=== PATIENT | male | born 1940 | race African-American/Black ===

== ENCOUNTER 2018-05-24 15:50 | Inpatient (IN) | payer BC ==
[~2018-05-24] VITALS: Ht 185.4 cm; Wt 76.3 kg
[2018-05-24 15:20] VITALS: BP 107/50
[~2018-05-24 15:50] MED LIST: MULT-1116 MT
[2018-05-24 16:30] VITALS: BP 106/60
[2018-05-24] MEDS ORDERED: TRAMADOL 50MG TABLET PO PRN (16:30)
[2018-05-24] MEDS ORDERED: GUAIFENESIN 200MG/10ML SUGAR FREE UDC PO PRN (16:30)
[2018-05-24] MEDS ORDERED: CLONIDINE 0.1MG TABLET PO PRN (16:30)
[2018-05-24] MEDS ORDERED: DOCUSATE SODIUM 100MG CAPSULE PO PRN (16:30)
[2018-05-24] MEDS ORDERED: NA PHOS,M-B/NA PHOS,DI-BA ENEMA 118ML PR PRN (16:30)
[2018-05-24] MEDS ORDERED: LORAZEPAM 0.5MG TABLET PO PRN (16:30)
[2018-05-24] MEDS ORDERED: MAGNESIUM/ALUMINUM HYDROXIDE/SIMETHICONE 30ML UDC PO PRN (16:30)
[2018-05-24] MEDS ORDERED: DIPHENHYDRAMINE 50MG/ML VIAL IV PRN (16:30)
[2018-05-24] MEDS ORDERED: IPRATROPIUM/ALBUTEROL 0.5-3(2.5)MG/3ML NEB HHN PRN (16:30)
[2018-05-24] MEDS ORDERED: MORPHINE SULFATE 4 MG/ML CPJ (NOT FOR IM USE) IV PRN (16:30)
[2018-05-24] MEDS ORDERED: ONDANSETRON HCL 4MG/2ML VIAL IV PRN (16:30)
[2018-05-24] MEDS ORDERED: NITROGLYCERIN 0.4MG TABLET SL SL PRN (16:30)
[2018-05-24] MEDS ORDERED: ONDANSETRON 4MG ODT PO PRN (17:30)
[2018-05-24] MEDS: HYDROCODONE/ACETAMINOPHEN 10/325MG TABLET PO PRN (18:11)
[2018-05-24] MEDS: FERROUS SULFATE 300MG/5ML UDC PO SCH (18:11)
[2018-05-24 20:00] VITALS: BP 104/60
[2018-05-24] MEDS: FAMOTIDINE 20MG TABLET PO SCH (20:59)
[2018-05-24] MEDS: ASCORBIC ACID 500 MG TABLET PO SCH (20:59)
[2018-05-24] MEDS ORDERED: ZOLPIDEM TARTRATE 5MG TABLET PO PRN (21:00)
[2018-05-24] MEDS ORDERED: FAMOTIDINE 20MG/2ML VIAL IV SCH (21:00)
[2018-05-25 06:50] LABS: BASOPHILS % 0.7 % (0.0-2.0); EOSINOPHILS % 1.6 % (0.0-5.0); HEMOGLOBIN. 7.1 g/dL (14.0-18.0); LYMPHOCYTES % 25.5 % (20.0-50.0); MEAN CORPUSCULAR HEMOGLOBIN 34.2 pg (28.0-32.0); MEAN CORPUSCULAR VOLUME 98.7 fL (80.0-94.0); MEAN PLATELET VOLUME 7.6 fl (7.4-10.4); MONOCYTES % 12.3 % (2.0-8.0); NEUTROPHILS % 59.9 % (40.0-76.0); PLATELET 198 x1000/uL (130-400); RED BLOOD CELL COUNT 2.07 mill/uL (4.7-6.1); RED CELL DISTRIBUTION WIDTH 13.2 % (11.6-14.6)
[2018-05-25 07:02] LABS: HEMATOCRIT. 20.4 % (42.0-52.0)
[2018-05-25 07:50] VITALS: BP 109/62
[2018-05-25 07:50] LABS: CHLORIDE 102 mEq/L (98-107)
[2018-05-25] MEDS: HYDROCODONE/ACETAMINOPHEN 10/325MG TABLET PO PRN (07:51)
[2018-05-25] MEDS: ASCORBIC ACID 500 MG TABLET PO SCH ×2 (08:33→21:49)
[2018-05-25] MEDS: ZINC SULFATE 220 MG ( 50 ) CAPSULE PO SCH (08:34)
[2018-05-25] MEDS: FAMOTIDINE 20MG TABLET PO SCH ×2 (08:34→21:49)
[2018-05-25] MEDS: FERROUS SULFATE 300MG/5ML UDC PO SCH ×3 (08:34→17:32)
[2018-05-25] MEDS ORDERED: FAMOTIDINE 20MG TABLET PO SCH (09:00)
[2018-05-25] MEDS ORDERED: ENOXAPARIN 40MG/0.4ML SYR SUBCUT SCH (09:00)
[2018-05-25 11:05] LABS: CLARITY URINE CLEAR (CLEAR); COLOR URINE YELLOW (YELLOW); KETONES URINE TRACE (NEGATIVE); LEUKOCYTE ESTERASE URINE NEGATIVE (NEGATIVE); NITRITE URINE NEGATIVE (NEGATIVE); OCCULT BLOOD URINE NEGATIVE (NEGATIVE); PH URINE 5.5 (4.5-8.0); PROTEIN URINE NEGATIVE (NEGATIVE); SPECIFIC GRAVITY URINE 1.016 (1.005-1.030); UROBILINOGEN URINE 0.2 E.U./dL (0.2-1.0)
[2018-05-25 15:04] VITALS: BP 102/52
[2018-05-25 15:20] VITALS: BP 120/68
[2018-05-25 16:17] VITALS: BP 100/51
[2018-05-25 17:43] VITALS: BP 112/61
[2018-05-25 20:00] VITALS: BP 129/67
[2018-05-25] MEDS: ENOXAPARIN 80MG/0.8ML SYR SUBCUT SCH (21:49)
[2018-05-26] MEDS: HYDROCODONE/ACETAMINOPHEN 10/325MG TABLET PO PRN ×3 (03:54→16:35)
[2018-05-26 06:59] LABS: BASOPHILS % 0.4 % (0.0-2.0); EOSINOPHILS % 1.7 % (0.0-5.0); HEMATOCRIT. 24.6 % (42.0-52.0); HEMOGLOBIN. 8.5 g/dL (14.0-18.0); LYMPHOCYTES % 34.7 % (20.0-50.0); MEAN CORPUSCULAR HEMOGLOBIN 33.9 pg (28.0-32.0); MEAN CORPUSCULAR VOLUME 98.3 fL (80.0-94.0); MEAN PLATELET VOLUME 7.5 fl (7.4-10.4); MONOCYTES % 11.9 % (2.0-8.0); NEUTROPHILS % 51.3 % (40.0-76.0); PLATELET 227 x1000/uL (130-400); RED CELL DISTRIBUTION WIDTH 13.7 % (11.6-14.6)
[2018-05-26 07:00] VITALS: BP 124/71
[2018-05-26 07:31] LABS: CHLORIDE 101 mEq/L (98-107)
[2018-05-26 07:36] LABS: LDL CHOLESTEROL 108 mg/dL (5-100); PHOSPHORUS 3.4 mg/dL (2.5-4.9)
[2018-05-26 07:37] LABS: FERRITIN 844 ng/mL (22-322)
[2018-05-26 07:38] LABS: PROSTRATE SPECIFIC AG TOTAL 0.04 ng/mL (0.0-4.0)
[2018-05-26 07:39] LABS: HDL CHOLESTEROL 42 mg/dL (40-59)
[2018-05-26 07:41] LABS: TOTAL IRON BINDING CAPACITY 210 ug/dL (250-450)
[2018-05-26 07:52] LABS: VITAMIN B12 SERUM 428 pg/mL (211-911)
[2018-05-26 08:03] LABS: FOLIC ACID (FOLATE) SERUM > 20.00 ng/mL (>5.38)
[2018-05-26] MEDS: ZINC SULFATE 220 MG ( 50 ) CAPSULE PO SCH (08:17)
[2018-05-26] MEDS: FERROUS SULFATE 300MG/5ML UDC PO SCH ×3 (08:17→16:26)
[2018-05-26] MEDS: ENOXAPARIN 80MG/0.8ML SYR SUBCUT SCH ×2 (08:18→21:49)
[2018-05-26] MEDS: FAMOTIDINE 20MG TABLET PO SCH ×2 (08:18→21:49)
[2018-05-26 10:30] VITALS: BP 106/53
[2018-05-26] MEDS: ASCORBIC ACID 500 MG TABLET PO SCH ×2 (13:50→21:49)
[2018-05-26 16:25] VITALS: BP 126/75
[2018-05-26 20:00] VITALS: BP 115/69
[2018-05-27] MEDS: HYDROCODONE/ACETAMINOPHEN 10/325MG TABLET PO PRN ×2 (00:22→22:13)
[2018-05-27 06:38] LABS: BASOPHILS % 0.5 % (0.0-2.0); EOSINOPHILS % 2.8 % (0.0-5.0); HEMATOCRIT. 25.1 % (42.0-52.0); HEMOGLOBIN. 8.5 g/dL (14.0-18.0); LYMPHOCYTES % 30.7 % (20.0-50.0); MEAN CORPUSCULAR HEMOGLOBIN 33.6 pg (28.0-32.0); MEAN CORPUSCULAR VOLUME 99.2 fL (80.0-94.0); MEAN PLATELET VOLUME 7.8 fl (7.4-10.4); MONOCYTES % 11.4 % (2.0-8.0); NEUTROPHILS % 54.6 % (40.0-76.0); PLATELET 264 x1000/uL (130-400); RED BLOOD CELL COUNT 2.53 mill/uL (4.7-6.1); RED CELL DISTRIBUTION WIDTH 14.1 % (11.6-14.6)
[2018-05-27 07:00] VITALS: BP_SYST 123; BP_SYST 135; BP_DIAS 67; BP_DIAS 79
[2018-05-27] MEDS: FERROUS SULFATE 300MG/5ML UDC PO SCH ×3 (08:46→16:08)
[2018-05-27] MEDS: ASCORBIC ACID 500 MG TABLET PO SCH ×2 (08:46→22:12)
[2018-05-27] MEDS: ZINC SULFATE 220 MG ( 50 ) CAPSULE PO SCH (08:46)
[2018-05-27] MEDS: FAMOTIDINE 20MG TABLET PO SCH ×2 (08:46→22:12)
[2018-05-27] MEDS: ENOXAPARIN 80MG/0.8ML SYR SUBCUT SCH ×2 (08:47→22:13)
[2018-05-27 20:00] VITALS: BP 141/71
[2018-05-28 07:13] LABS: BASOPHILS % 0.7 % (0.0-2.0); EOSINOPHILS % 1.6 % (0.0-5.0); HEMATOCRIT. 25.9 % (42.0-52.0); HEMOGLOBIN. 8.7 g/dL (14.0-18.0); LYMPHOCYTES % 27.1 % (20.0-50.0); MEAN CORPUSCULAR HEMOGLOBIN 33.4 pg (28.0-32.0); MEAN CORPUSCULAR VOLUME 98.8 fL (80.0-94.0); MONOCYTES % 10.4 % (2.0-8.0); NEUTROPHILS % 60.2 % (40.0-76.0); PLATELET 300 x1000/uL (130-400); RED BLOOD CELL COUNT 2.62 mill/uL (4.7-6.1)
[2018-05-28 07:50] VITALS: BP 119/69
[2018-05-28] MEDS: ENOXAPARIN 80MG/0.8ML SYR SUBCUT SCH ×2 (08:25→20:39)
[2018-05-28] MEDS: FERROUS SULFATE 300MG/5ML UDC PO SCH ×3 (08:25→17:04)
[2018-05-28] MEDS: ASCORBIC ACID 500 MG TABLET PO SCH ×2 (08:25→20:38)
[2018-05-28] MEDS: FAMOTIDINE 20MG TABLET PO SCH ×2 (08:25→20:38)
[2018-05-28] MEDS: ZINC SULFATE 220 MG ( 50 ) CAPSULE PO SCH (08:25)
[2018-05-28] MEDS: HYDROCODONE/ACETAMINOPHEN 10/325MG TABLET PO PRN ×2 (11:19→20:39)
[2018-05-28] MEDS: CYANOCOBALAMIN 1000MCG/ML VIAL IM SCH (17:04)
[2018-05-28 20:00] VITALS: BP 114/67
[2018-05-29] MEDS: HYDROCODONE/ACETAMINOPHEN 10/325MG TABLET PO PRN (07:05)
[2018-05-29 07:20] LABS: BASOPHILS % 0.7 % (0.0-2.0); EOSINOPHILS % 1.5 % (0.0-5.0); HEMATOCRIT. 25.3 % (42.0-52.0); HEMOGLOBIN. 8.9 g/dL (14.0-18.0); LYMPHOCYTES % 27.9 % (20.0-50.0); MEAN CORPUSCULAR HEMOGLOBIN 34.7 pg (28.0-32.0); MONOCYTES % 8.9 % (2.0-8.0); PLATELET 296 x1000/uL (130-400); RED BLOOD CELL COUNT 2.55 mill/uL (4.7-6.1); RED CELL DISTRIBUTION WIDTH 14.1 % (11.6-14.6)
[2018-05-29 07:51] VITALS: BP 118/76
[2018-05-29] MEDS: FERROUS SULFATE 300MG/5ML UDC PO SCH ×3 (09:21→17:11)
[2018-05-29] MEDS: ASCORBIC ACID 500 MG TABLET PO SCH ×2 (09:21→21:24)
[2018-05-29] MEDS: ZINC SULFATE 220 MG ( 50 ) CAPSULE PO SCH (09:21)
[2018-05-29] MEDS: FAMOTIDINE 20MG TABLET PO SCH ×2 (09:21→21:25)
[2018-05-29] MEDS: ENOXAPARIN 80MG/0.8ML SYR SUBCUT SCH ×2 (09:22→21:25)
[2018-05-29] MEDS: CYANOCOBALAMIN 1000MCG/ML VIAL IM SCH (09:22)
[2018-05-29] MEDS ORDERED: TRAMADOL 50MG TABLET PO PRN (10:30)
[2018-05-29] MEDS ORDERED: HYDROCODONE/ACETAMINOPHEN 10/325MG TABLET PO PRN (10:30)
[2018-05-29] MEDS ORDERED: MORPHINE SULFATE 4 MG/ML CPJ (NOT FOR IM USE) IV PRN (12:30)
[2018-05-29] MEDS ORDERED: LORAZEPAM 0.5MG TABLET PO PRN (12:30)
[2018-05-29] MEDS: LACTULOSE 20G/30ML UDC PO SCH ×2 (12:36→17:11)
[2018-05-29 20:00] VITALS: BP 107/64
[2018-05-29] MEDS ORDERED: ZOLPIDEM TARTRATE 5MG TABLET PO PRN (21:00)
[2018-05-29 22:00] VITALS: BP 116/68
[2018-05-30 06:00] VITALS: BP 111/69
[2018-05-30] MEDS: ACETAMINOPHEN 325MG TABLET PO PRN (06:25)
[2018-05-30] MEDS ORDERED: HYDROCODONE/ACETAMINOPHEN 10/325MG TABLET PO PRN (06:30)
[2018-05-30] MEDS ORDERED: TRAMADOL 50MG TABLET PO PRN (06:30)
[2018-05-30 07:16] LABS: EOSINOPHILS % 2.4 % (0.0-5.0); HEMATOCRIT. 26.5 % (42.0-52.0); MEAN CORPUSCULAR HEMOGLOBIN 33.8 pg (28.0-32.0); MEAN CORPUSCULAR VOLUME 99.8 fL (80.0-94.0); MEAN PLATELET VOLUME 8.1 fl (7.4-10.4); MONOCYTES % 10.1 % (2.0-8.0); NEUTROPHILS % 56.5 % (40.0-76.0); PLATELET 356 x1000/uL (130-400); RED BLOOD CELL COUNT 2.66 mill/uL (4.7-6.1); RED CELL DISTRIBUTION WIDTH 14.5 % (11.6-14.6)
[2018-05-30 07:40] VITALS: BP 116/66
[2018-05-30 07:57] LABS: CHLORIDE 102 mEq/L (98-107)
[2018-05-30] MEDS: ZINC SULFATE 220 MG ( 50 ) CAPSULE PO SCH (08:32)
[2018-05-30] MEDS: FERROUS SULFATE 300MG/5ML UDC PO SCH ×3 (08:32→17:01)
[2018-05-30] MEDS: ASCORBIC ACID 500 MG TABLET PO SCH ×2 (08:32→21:28)
[2018-05-30] MEDS: FAMOTIDINE 20MG TABLET PO SCH ×2 (08:32→21:28)
[2018-05-30] MEDS: CYANOCOBALAMIN 1000MCG/ML VIAL IM SCH (08:33)
[2018-05-30] MEDS: ENOXAPARIN 80MG/0.8ML SYR SUBCUT SCH ×2 (08:33→21:28)
[2018-05-30 20:00] VITALS: BP 115/69
[2018-05-31 07:30] VITALS: BP 115/66
[2018-05-31] MEDS: CYANOCOBALAMIN 1000MCG/ML VIAL IM SCH (09:51)
[2018-05-31] MEDS: FAMOTIDINE 20MG TABLET PO SCH ×2 (09:52→21:18)
[2018-05-31] MEDS: FERROUS SULFATE 300MG/5ML UDC PO SCH ×3 (09:52→18:09)
[2018-05-31] MEDS: ENOXAPARIN 80MG/0.8ML SYR SUBCUT SCH ×2 (09:52→21:19)
[2018-05-31] MEDS: ASCORBIC ACID 500 MG TABLET PO SCH ×2 (09:52→21:18)
[2018-05-31] MEDS: ZINC SULFATE 220 MG ( 50 ) CAPSULE PO SCH (09:52)
[2018-05-31 20:00] VITALS: BP 113/60
[2018-06-01 07:20] LABS: BASOPHILS % 0.6 % (0.0-2.0); EOSINOPHILS % 1.7 % (0.0-5.0); HEMATOCRIT. 30.4 % (42.0-52.0); HEMOGLOBIN. 10.3 g/dL (14.0-18.0); LYMPHOCYTES % 30.5 % (20.0-50.0); MEAN CORPUSCULAR HEMOGLOBIN 33.8 pg (28.0-32.0); MEAN CORPUSCULAR VOLUME 100.2 fL (80.0-94.0); MEAN PLATELET VOLUME 8.3 fl (7.4-10.4); NEUTROPHILS % 58.2 % (40.0-76.0); PLATELET 414 x1000/uL (130-400); RED BLOOD CELL COUNT 3.03 mill/uL (4.7-6.1); RED CELL DISTRIBUTION WIDTH 15.1 % (11.6-14.6)
[2018-06-01 08:00] VITALS: BP 118/67
[2018-06-01] MEDS: ASCORBIC ACID 500 MG TABLET PO SCH ×2 (08:06→21:15)
[2018-06-01] MEDS: FERROUS SULFATE 300MG/5ML UDC PO SCH ×3 (08:06→16:22)
[2018-06-01] MEDS: ENOXAPARIN 80MG/0.8ML SYR SUBCUT SCH (08:06)
[2018-06-01] MEDS: CYANOCOBALAMIN 1000MCG/ML VIAL IM SCH (08:06)
[2018-06-01] MEDS: FAMOTIDINE 20MG TABLET PO SCH ×2 (08:06→21:14)
[2018-06-01] MEDS: ZINC SULFATE 220 MG ( 50 ) CAPSULE PO SCH (08:06)
[2018-06-01 09:45] VITALS: BP 101/50
[2018-06-01 17:06] LABS: 25-HYDROXY VITAMIN D3 26 ng/mL (.)
[2018-06-01] MEDS: RIVAROXABAN 15 MG TABLET PO SCH (17:46)
[2018-06-01 20:00] VITALS: BP 101/51
[2018-06-02 06:20] LABS: BASOPHILS % 0.4 % (0.0-2.0); EOSINOPHILS % 1.5 % (0.0-5.0); LYMPHOCYTES % 27.3 % (20.0-50.0); MEAN CORPUSCULAR HEMOGLOBIN 34.4 pg (28.0-32.0); MEAN CORPUSCULAR VOLUME 100.1 fL (80.0-94.0); MEAN PLATELET VOLUME 7.8 fl (7.4-10.4); MONOCYTES % 9.5 % (2.0-8.0); NEUTROPHILS % 61.3 % (40.0-76.0); PLATELET 444 x1000/uL (130-400); RED BLOOD CELL COUNT 2.89 mill/uL (4.7-6.1); RED CELL DISTRIBUTION WIDTH 14.7 % (11.6-14.6)
[2018-06-02 08:00] VITALS: BP 143/67
[2018-06-02] MEDS: FAMOTIDINE 20MG TABLET PO SCH ×2 (08:42→20:33)
[2018-06-02] MEDS: FERROUS SULFATE 300MG/5ML UDC PO SCH ×3 (08:42→16:39)
[2018-06-02] MEDS: ZINC SULFATE 220 MG ( 50 ) CAPSULE PO SCH (08:42)
[2018-06-02] MEDS: RIVAROXABAN 15 MG TABLET PO SCH ×2 (08:42→16:39)
[2018-06-02] MEDS: ASCORBIC ACID 500 MG TABLET PO SCH ×2 (08:42→20:33)
[2018-06-02] MEDS ORDERED: ERGOCALCIFEROL 50000UNITS CAPSULE PO SCH (10:00)
[2018-06-02 20:00] VITALS: BP 118/65
[2018-06-03 06:00] LABS: BASOPHILS % 0.4 % (0.0-2.0); EOSINOPHILS % 1.9 % (0.0-5.0); HEMATOCRIT. 32.3 % (42.0-52.0); LYMPHOCYTES % 32.1 % (20.0-50.0); MEAN CORPUSCULAR HEMOGLOBIN 34.1 pg (28.0-32.0); MEAN CORPUSCULAR VOLUME 100.1 fL (80.0-94.0); MONOCYTES % 8.3 % (2.0-8.0); NEUTROPHILS % 57.3 % (40.0-76.0); PLATELET 503 x1000/uL (130-400); RED BLOOD CELL COUNT 3.23 mill/uL (4.7-6.1); RED CELL DISTRIBUTION WIDTH 15.1 % (11.6-14.6)
[2018-06-03 08:00] VITALS: BP 106/62
[2018-06-03] MEDS: ZINC SULFATE 220 MG ( 50 ) CAPSULE PO SCH (09:29)
[2018-06-03] MEDS: FERROUS SULFATE 300MG/5ML UDC PO SCH ×3 (09:29→17:08)
[2018-06-03] MEDS: FAMOTIDINE 20MG TABLET PO SCH ×2 (09:30→21:01)
[2018-06-03] MEDS: RIVAROXABAN 15 MG TABLET PO SCH ×2 (09:30→17:08)
[2018-06-03] MEDS: ASCORBIC ACID 500 MG TABLET PO SCH ×2 (09:30→21:01)
[2018-06-03 20:00] VITALS: BP 96/56
[2018-06-03 23:54] VITALS: BP 103/64
[2018-06-04] MEDS: ACETAMINOPHEN 325MG TABLET PO PRN (06:36)
[2018-06-04 07:00] LABS: BASOPHILS % 0.6 % (0.0-2.0); EOSINOPHILS % 1.8 % (0.0-5.0); HEMATOCRIT. 31.8 % (42.0-52.0); HEMOGLOBIN. 10.9 g/dL (14.0-18.0); LYMPHOCYTES % 29.1 % (20.0-50.0); MEAN CORPUSCULAR HEMOGLOBIN 34.1 pg (28.0-32.0); MEAN CORPUSCULAR VOLUME 99.5 fL (80.0-94.0); MEAN PLATELET VOLUME 7.7 fl (7.4-10.4); NEUTROPHILS % 59.5 % (40.0-76.0); PLATELET 572 x1000/uL (130-400); RED BLOOD CELL COUNT 3.19 mill/uL (4.7-6.1); RED CELL DISTRIBUTION WIDTH 15.4 % (11.6-14.6)
[2018-06-04 08:00] VITALS: BP 125/68
[2018-06-04] MEDS: ZINC SULFATE 220 MG ( 50 ) CAPSULE PO SCH (09:25)
[2018-06-04] MEDS: ASCORBIC ACID 500 MG TABLET PO SCH ×2 (09:25→21:50)
[2018-06-04] MEDS: FAMOTIDINE 20MG TABLET PO SCH ×2 (09:25→21:51)
[2018-06-04] MEDS: RIVAROXABAN 15 MG TABLET PO SCH ×2 (09:25→16:13)
[2018-06-04] MEDS: FERROUS SULFATE 300MG/5ML UDC PO SCH ×3 (09:25→16:13)
[2018-06-04] MEDS ORDERED: HYDROCODONE/ACETAMINOPHEN 10/325MG TABLET PO PRN (10:30)
[2018-06-04 20:00] VITALS: BP 109/63
[2018-06-05 06:57] LABS: BASOPHILS % 0.7 % (0.0-2.0); EOSINOPHILS % 2.1 % (0.0-5.0); HEMATOCRIT. 31.9 % (42.0-52.0); HEMOGLOBIN. 10.9 g/dL (14.0-18.0); LYMPHOCYTES % 34.9 % (20.0-50.0); MEAN CORPUSCULAR HEMOGLOBIN 34.3 pg (28.0-32.0); MEAN CORPUSCULAR VOLUME 100.4 fL (80.0-94.0); MEAN PLATELET VOLUME 7.3 fl (7.4-10.4); MONOCYTES % 11.3 % (2.0-8.0); PLATELET 581 x1000/uL (130-400); RED BLOOD CELL COUNT 3.18 mill/uL (4.7-6.1); RED CELL DISTRIBUTION WIDTH 15.2 % (11.6-14.6)
[2018-06-05 07:00] VITALS: BP 110/64
[2018-06-05] MEDS: FERROUS SULFATE 300MG/5ML UDC PO SCH ×3 (08:54→16:16)
[2018-06-05] MEDS: RIVAROXABAN 15 MG TABLET PO SCH ×2 (08:54→16:16)
[2018-06-05] MEDS: ZINC SULFATE 220 MG ( 50 ) CAPSULE PO SCH (08:54)
[2018-06-05] MEDS: ASCORBIC ACID 500 MG TABLET PO SCH (08:54)
[2018-06-05] MEDS: FAMOTIDINE 20MG TABLET PO SCH (08:54)
[2018-06-05 11:59] VITALS: BP 112/69
[2018-06-05] MEDS: ACETAMINOPHEN 325MG TABLET PO PRN (13:18)
[2018-06-05 14:00] VITALS: BP 112/69
== END 2018-06-05 19:35 | disposition home health service (06) | DRG 535 ==
LOC: EDBD 15:50
PROVIDERS: ADMIT Physical Medicine & Rehabilitation Spinal Cord Injury Medicine; ATTEND Internal Medicine
DX: S72.141A Displaced intertrochanteric fracture of right femur, initial encounter for closed fracture (principal); E43 Unspecified severe protein-calorie malnutrition; D62 Acute posthemorrhagic anemia; I82.411 Acute embolism and thrombosis of right femoral vein; R50.9 Fever, unspecified; R53.81 Other malaise; R26.9 Unspecified abnormalities of gait and mobility; R73.9 Hyperglycemia, unspecified; E78.00 Pure hypercholesterolemia, unspecified; I10 Essential (primary) hypertension; E83.51 Hypocalcemia; W10.8XXA Fall (on) (from) other stairs and steps, initial encounter; Y93.02 Activity, running; E55.9 Vitamin D deficiency, unspecified; F39 Unspecified mood [affective] disorder; Z68.22 Body mass index [BMI] 22.0-22.9, adult; Z90.49 Acquired absence of other specified parts of digestive tract; Z85.038 Personal history of other malignant neoplasm of large intestine; Z85.46 Personal history of malignant neoplasm of prostate; Z90.79 Acquired absence of other genital organ(s); Y92.89 Other specified places as the place of occurrence of the external cause; Y99.8 Other external cause status; Z82.49 Family history of ischemic heart disease and other diseases of the circulatory system
CPT/HCPCS: 36415; 71046; 73502; 73552; 80053; 80061; 81003; 82270; 82306; 82607; 82728; 82746; 83036; 83540; 83550; 83735; 84100; 84134; 84145; 84153; 84443; 84630; 85025; 86850; 86900; 86920; 87040; 87086; 93970; 94640; 97110; 97116; 97150; 97162; 97167; 97530; 97535; J1650; J3420; J7040; J7620; P9016; G0103